=== PATIENT | female | born 1945 | race Caucasian/White ===

== ENCOUNTER 2023-01-21 09:11 | Day surgery (SDC) | payer MEDICARE ==
[2023-01-20 09:37] VITALS: BMI 25.8
[2023-01-21] MEDS ORDERED: Lidocaine 1% PF 5 ML VIAL ONE (12:53)
[2023-01-21] MEDS ORDERED: PROPOFOL 200 MG/20 ML VIAL ONE (12:53)
[2023-01-21 14:52] LABS: Iron 20 ug/dL (50-170); Iron Binding Capacity, Total 335 mcg/dL (265-497)
== END 2023-01-21 14:31 | disposition home or self-care (01) ==
LOC: SDC 09:11
PROVIDERS: ATTEND Internal Medicine Gastroenterology
PROC: 0DJ08ZZ Inspection of Upper Intestinal Tract, Via Natural or Artificial Opening Endoscopic (ICD-10-PCS; principal; 2023-01-21)
DX: R10.13 Epigastric pain (principal); R63.4 Abnormal weight loss; I10 Essential (primary) hypertension; I48.0 Paroxysmal atrial fibrillation; I71.40 Abdominal aortic aneurysm, without rupture, unspecified; I42.9 Cardiomyopathy, unspecified; F32.A Depression, unspecified; E78.5 Hyperlipidemia, unspecified; D72.829 Elevated white blood cell count, unspecified; I63.9 Cerebral infarction, unspecified; I25.2 Old myocardial infarction; R68.81 Early satiety; E11.40 Type 2 diabetes mellitus with diabetic neuropathy, unspecified; I47.1 Supraventricular tachycardia; E07.9 Disorder of thyroid, unspecified; Z79.82 Long term (current) use of aspirin; Z79.890 Hormone replacement therapy; Z79.84 Long term (current) use of oral hypoglycemic drugs; Z79.899 Other long term (current) drug therapy; Z90.49 Acquired absence of other specified parts of digestive tract; Z90.710 Acquired absence of both cervix and uterus; Z79.01 Long term (current) use of anticoagulants; Z88.0 Allergy status to penicillin
CPT/HCPCS: 82607; 82728; 82746; 83540; 83550; J2704